=== PATIENT | male | born 1970 | race Caucasian/White ===

== ENCOUNTER 2017-11-03 01:08 | Emergency (ER) | payer SELFPAY ==
[~2017-11-03] VITALS: Ht 172.7 cm; Wt 91.0 kg
[~2017-11-03 01:08] MED LIST: CEPH500C3 PO; CLIN150 PO; DESE1CRE TOP; PERC10TA27 PO
[2017-11-03 01:17] VITALS: BP 158/102; PULSE 70; RESP 20; TEMP 97.8; O2SAT 96
[2017-11-03] MEDS ORDERED: NOVO7030P2 SQ (01:26)
[2017-11-03] MEDS ORDERED: ADVIL (01:28)
--- NOTE | 2017-11-03 01:58 | PD ---
HPI Chief Complaint: Diabetic Time Seen by Provider: 01:34 Travel History International Travel<30 days: No Contact w/Intl Traveler<30days: No Traveled to known affect area: No History of Present Illness HPI The patient is a 47 year old male who presents to the [facility] emergency department with a history of difficult to control blood sugars over the last few days. The patient was first diagnosed with diabetes in 2017. He reports that he was admitted to the hospital for a week when he was first diagnosed at [facility]. He reports that he was discharged home with 7030 insulin which he takes 1-2 times per day. He reports that he uses 40-50 units each time based on how much he is eaten. The patient reports that he has been using more insulin than usual because his blood sugar has been so high over the last 3 days. The patient reports that earlier in the evening his blood sugar was in the 300s, therefore he took 50 units of the 7030 at approximately midnight. He reports having blurry vision associated with this and urine frequency. The patient additionally reports that he intermittently is feeling dizzy/lightheaded. A review of systems otherwise, he denies having any recent fevers, cough, congestion, neck pain, chest pain, shortness of breath, abdominal pain, vomiting, diarrhea, urinary symptoms, or other neurologic symptoms. [facility] Past Medical History Narrative Medical Patient's past medical history is significant for diabetes mellitus, history of chronic back pain, history of psychiatric disorder. Blood Disorders: No Cancer: No Cardiovascular Problems: No Chemotherapy: No Diabetes: Yes Patient Takes Glucophage: No Diminished Hearing: No Endocrine: No Gastrointestinal Disorders: Yes ( ) Genitourinary: No Hypertension: Yes Immune Disorder: No Musculoskeletal: Yes (CARPAL TUNNEL LUE/HERNIATED DISCS) Neurologic: No Psychiatric: Yes (HAD PSYCH EVAL 35 YRS OLD/R/T ANGER MANAGEMENT) Reproductive: No Respiratory: No Radiation Therapy: No Influenza Vaccination: No Past Surgical History Narrative Surgical The patient's past surgical history is significant for groin surgery as a child , right index finger surgery in 2002. Abdominal Surgery: Yes (5YRS OF AGE TESTICULAR or HERNIA?) AICD: No Cardiac Surgery: No Ear Surgery: No Endocrine Surgery: No Eye Surgery: No Genitourinary Surgery: No Gynecologic Surgery: No Joint Replacement: No Oral Surgery: No Pacemaker: No Thoracic Surgery: No Other Surgery: Yes (R INDEX FINGER, 2003) Social History Alcohol Use: Yes (rare) Tobacco Use: Yes (He reports that he recently quit smoking and vapes instead.) Substance Use: No Allergies-Medications (Allergen,Severity, Reaction): Coded Allergies: Sulfa (Sulfonamide Antibiotics) (Unverified Allergy, Severe, SWELLS/ITCH, 11/03/17) *MDRO Multi-Drug Resistant Organism (Verified Adverse Reaction, Unknown, ) MRSA (wrist wound)- 10/2015 Reported Meds & Prescriptions Reported Meds & Active Scripts Active Reported [Advil] Novolin 70-30 Inj (Insulin Human Isoph/Insulin Regular) 1,000 Unit/10 Ml Vial 100 Units SQ Review of Systems Except as stated in HPI: all other systems reviewed are Neg General / Constitutional: No: Fever Eyes: Positive: Blurred Vision, No: Visual changes HENT: Positive: Lightheadedness, No: Headaches Cardiovascular: No: Chest Pain or Discomfort Respiratory: No: Shortness of Breath Gastrointestinal: No: Abdominal Pain Genitourinary: No: Dysuria Musculoskeletal: No: Pain Skin: No Rash Neurologic: Positive: Dizziness, No: Weakness, Focal Abnormalities, Change in Mentation, Slurred Speech, Sensory Disturbance Psychiatric: No: Depression Endocrine: Positive: Polyuria, No: Polydipsia Hematologic/Lymphatic: No: Easy Bruising Physical Exam Narrative General: The patient is a well-developed well-nourished male in no acute distress. Head and Neck exam: Head is normocephalic atraumatic. Eyes: EOMI, pupils are equal round and reactive to light. Nose: Midline septum with pink mucous membranes Mouth: Dentition unremarkable. Moist mucus membranes. Posterior oropharynx is not erythematous. No tonsillar hypertrophy. Uvula midline. Airway patent. Neck: No palpable lymphadenopathy. No nuchal rigidity. No thyromegaly. Cardiovascular: Regular rate and rhythm without murmurs, gallops, or rubs. Lungs: Clear to auscultation bilaterally. No wheezes, rhonchi, or rales. Abdomen: Soft, without tenderness to palpation in all 4 quadrants of the abdomen. No guarding, rebound, or rigidity. Normal bowel sounds are audible. No tenderness on palpation of McBurney's point. Negative Ron sign. Extremities: No clubbing, cyanosis, or edema. 2+ pulses in all 4 extremities. No calf tenderness on palpation. Back: No spinous process tenderness to palpation. No costovertebral angle tenderness to palpation. Neurologic Exam: Grossly nonfocal. Skin Exam: No rash noted. Intact skin that is warm and dry. Data Data Last Documented VS Vital Signs Date Time Temp Pulse Resp B/P (MAP) Pulse Ox O2 Delivery O2 Flow Rate FiO2 11/03/17 03:30 68 18 129/79 (96) 99 Room Air 11/03/17 01:17 97.8 Orders Orders Electrocardiogram (11/03/17 01:56) Complete Blood Count With Diff (11/03/17 01:56) Comprehensive Metabolic Panel (11/03/17 01:56) Creatine Kinase (Cpk) (11/03/17 01:56) Ckmb (Isoenzyme) Profile (11/03/17 01:56) Troponin I (11/03/17 01:56) Prothrombin Time / Inr (Pt) (11/03/17 01:56) Act Partial Throm Time (Ptt) (11/03/17 01:56) Urinalysis - C+S If Indicated (11/03/17 01:56) Magnesium (Mg) (11/03/17 01:56) Chest, Single Ap (11/03/17 01:56) Iv Access Insert/Monitor (11/03/17 01:56) Ecg Monitoring (11/03/17 01:56) Oximetry (11/03/17 01:56) Sodium Chlorid 0.9% 500 Ml Inj (Ns 500 M (11/03/17 02:15) CKMB (11/03/17 02:01) CKMB% (11/03/17 02:01) Labs Laboratory Tests Test 11/03/17 02:01 White Blood Count 8.6 TH/MM3 Red Blood Count 5.38 MIL/MM3 Hemoglobin 15.9 GM/DL Hematocrit 46.6 % Mean Corpuscular Volume 86.6 FL Mean Corpuscular Hemoglobin 29.6 PG Mean Corpuscular Hemoglobin Concent 34.2 % Red Cell Distribution Width 12.7 % Platelet Count 181 TH/MM3 Mean Platelet Volume 10.1 FL Neutrophils (%) (Auto) 61.9 % Lymphocytes (%) (Auto) 28.1 % Monocytes (%) (Auto) 5.8 % Eosinophils (%) (Auto) 2.7 % Basophils (%) (Auto) 1.5 % Neutrophils # (Auto) 5.3 TH/MM3 Lymphocytes # (Auto) 2.4 TH/MM3 Monocytes # (Auto) 0.5 TH/MM3 Eosinophils # (Auto) 0.2 TH/MM3 Basophils # (Auto) 0.1 TH/MM3 CBC Comment DIFF FINAL Differential Comment Prothrombin Time 9.8 SEC Prothromb Time International Ratio 1.0 RATIO Activated Partial Thromboplast Time 25.1 SEC Blood Urea Nitrogen 8 MG/DL Creatinine 0.89 MG/DL Random Glucose 120 MG/DL Total Protein 7.1 GM/DL Albumin 3.6 GM/DL Calcium Level 8.7 MG/DL Magnesium Level 2.0 MG/DL Alkaline Phosphatase 65 U/L Aspartate Amino Transf (AST/SGOT) 23 U/L Alanine Aminotransferase (ALT/SGPT) 31 U/L Total Bilirubin 0.2 MG/DL Sodium Level 140 MEQ/L Potassium Level 4.4 MEQ/L Chloride Level 107 MEQ/L Carbon Dioxide Level 27.0 MEQ/L Anion Gap 6 MEQ/L Estimat Glomerular Filtration Rate 91 ML/MIN Total Creatine Kinase 137 U/L Creatine Kinase MB 1.7 NG/ML Troponin I LESS THAN 0.02 NG/ML MDM Medical Decision Making Medical Screen Exam Complete: Yes Emergency Medical Condition: Yes Medical Record Reviewed: Yes Differential Diagnosis DKA, versus hyperglycemic hyperosmolality, versus poorly controlled diabetes mellitus Narrative Course During the course of the patient's emergency department visit, the patient's history, examination, and differential diagnosis were reviewed with the patient. The patient was placed on a athletic monitor with oximetry and frequent blood pressure monitoring. The patient had IV access obtained and blood work sent for analysis. An EKG was done on arrival that shows a sinus rhythm heart rate of 60, QRS duration 88 ms, QTC 387 ms. With no acute ST segment elevation , T waves are inverted in lead III, V1. The patient was initially provided normal saline at 500 mL bolus 1. The patient's laboratory studies were reviewed and remarkable for a CBC that is within normal limits, CMP is remarkable for a glucose of 120, cardiac enzymes within normal limits, PT PTT within normal limits. Radiology studies were reviewed and remarkable for a chest x-ray shows no acute cardiopulmonary disease. The patient was instructed regarding the importance of further education regarding his diabetic management. The patient denies having a primary care physician. He is encouraged to follow-up with one for better management of his diabetes. The patient is given information regarding the [facility] for follow-up. He is encouraged to make an appointment in the morning for close follow-up. The patient is resting comfortably and feels better, is alert and in no distress. The patient's results and examination findings were discussed with the patient. The repeat examination is unremarkable and benign. The history, exam, diagnostic testing, and current condition do not suggest any significant pathology to warrant further testing, continued ED treatment, admission, or surgical evaluation at this point. The vital signs have been stable. The patient does not have uncontrollable pain, intractable vomiting, or other significant symptoms. The patient's condition is stable and appropriate for discharge. The patient will pursue further outpatient evaluation with a primary care physician or other designated or consulting physician as indicated in the discharge instructions. The patient expressed understanding and was agreeable with this plan. Diagnosis Primary Impression: Lightheadedness Additional Impression: Diabetes mellitus Qualified Codes: E11.8 - Type 2 diabetes mellitus with unspecified complications; Z79.4 - buttermaker (current) use of insulin Referrals: [facility] call for appointment Patient Instructions: General Instructions, Lightheadedness (ED), Type 2 Diabetes in Adults (ED) Med/Other Pt SpecificInfo: No Change to Meds Disposition: 01 DISCHARGE HOME Condition: Stable Beata Calabrese MD Nov 03, 2017 01:58
[2017-11-03 02:15] VITALS: RESP 18; O2SAT 99
[2017-11-03] MEDS ORDERED: SODIUM CHLORID 0.9% 500 ML INJ 500 ML IV ONE (02:15)
[2017-11-03 02:21] LABS: AUTOMATED NEUTROPHIL # 5.3 TH/MM3 (1.8-7.7); BASOPHIL # 0.1 TH/MM3 (0-0.2); BASOPHIL % 1.5 % (0.0-2.0); EOSINOPHIL # 0.2 TH/MM3 (0-0.4); EOSINOPHIL % 2.7 % (0.0-4.0); HEMATOCRIT 46.6 % (39.0-51.0); HEMOGLOBIN 15.9 GM/DL (13.0-17.0); LYMPH % 28.1 % (9.0-44.0); LYMPHOCYTE # 2.4 TH/MM3 (1.0-4.8); MEAN CELL VOLUME 86.6 FL (80.0-100.0); MEAN CORPUSCULAR HEMOGLOBIN 29.6 PG (27.0-34.0); MEAN CORPUSCULAR HGB CONC 34.2 % (32.0-36.0); MEAN PLATELET VOLUME 10.1 FL (7.0-11.0); MONO % 5.8 % (0.0-8.0); MONOCYTE # 0.5 TH/MM3 (0-0.9); NEUT % 61.9 % (16.0-70.0); PLATELET COUNT 181 TH/MM3 (150-450); RED BLOOD COUNT 5.38 MIL/MM3 (4.50-5.90); RED CELL DISTRIBUTION WIDTH 12.7 % (11.6-17.2); WHITE BLOOD COUNT 8.6 TH/MM3 (4.0-11.0)
[2017-11-03 02:32] LABS: PROTHROMBIN TIME - PATIENT 9.8 SEC (9.8-11.6)
--- NOTE | 2017-11-03 02:36 | RADRPT ---
EXAM DATE/TIME: 11/03/2017 02:24 [place] COMPARISON: No previous studies available for comparison. INDICATIONS : Cough. MEDICAL HISTORY : Diabetes SURGICAL HISTORY : None. ENCOUNTER: Initial ACUITY: 1 day PAIN SCORE: 5/10 LOCATION: Bilateral chest FINDINGS: A single view of the chest demonstrates the lungs to be symmetrically aerated without evidence of mas s, infiltrate or effusion. The cardiomediastinal contours are unremarkable. Osseous structures are intact. CONCLUSION: No acute disease. Carlos Reynoso MD on November 03, 2017 at 2:34 Board Certified Radiologist. This report was verified electronically.
[2017-11-03 02:59] LABS: ALKALINE PHOSPHATASE 65 U/L (45-117); TOTAL BILIRUBIN ADULT 0.2 MG/DL (0.2-1.0); TOTAL PROTEIN 7.1 GM/DL (6.4-8.2); TROPONIN I LESS THAN 0.02 NG/ML (0.02-0.05)
[2017-11-03 03:09] LABS: ALBUMIN 3.6 GM/DL (3.4-5.0); ALT (GPT) 31 U/L (12-78); AST (GOT) 23 U/L (15-37); BLOOD UREA NITROGEN 8 MG/DL (7-18); CALCIUM 8.7 MG/DL (8.5-10.1); CHLORIDE 107 MEQ/L (98-107); CREATININE 0.89 MG/DL (0.60-1.30); GLOMERULAR FILTRATION RATE 91 ML/MIN (>89); GLUCOSE,RANDOM 120 MG/DL (74-106); SODIUM (NA) 140 MEQ/L (136-145)
[2017-11-03 03:30] VITALS: BP 129/79; PULSE 68; RESP 18; O2SAT 99
--- NOTE | 2017-11-03 07:39 | EKG ---
Date Performed: 11/03/2017 Time Performed: 02:11:45 PTAGE: 47 years EKG: Sinus rhythm NORMAL ECG NO PREVIOUS TRACING DOCTOR: Ziggy Aparicio Interpretating Date/Time 11/03/2017 07:37:39
== END 2017-11-03 04:24 | disposition home or self-care (01) ==
LOC: NEPC 01:08
DX: R42 Dizziness and giddiness (principal); E11.8 Type 2 diabetes mellitus with unspecified complications; H53.8 Other visual disturbances; G89.29 Other chronic pain; Z79.4 Long term (current) use of insulin; Z72.0 Tobacco use
CPT/HCPCS: 71045; 80053; 82550; 82552; 83735; 84484; 85025; 85610; 85730; 93005; 96360; 99285; J7040